=== PATIENT | male | born 1965 | race Caucasian/White ===

== ENCOUNTER 2021-02-22 12:19 | Observation (INO) ==
[~2021-02-22 12:19] MED LIST: Buffered Lidocaine 1% SYRIN 1 ml INTRADERM ONE; Lactated Ringers 1000 ml BAG 1,000 ML IV SCH
[2021-02-22] MEDS ORDERED: Sodium Citrate/Citric Acid LIQ 15 ML UDC PO ONE (13:22)
[2021-02-22] MEDS ORDERED: fentaNYL 100 mcg/2 ml 50 MCG/ML VIAL ONE (13:27)
[2021-02-22] MEDS ORDERED: Propofol 10 MG/ML 20 ML BTL ONE (13:27)
[2021-02-22] MEDS ORDERED: Midazolam 2 mg/2 ml VIAL 1 mg/ml 2 ml VIAL (2 mg) ONE (13:27)
[2021-02-22] MEDS ORDERED: Lidocaine 2% PF 5 ML VIAL ONE (13:27)
[2021-02-22] MEDS ORDERED: Sodium Citrate/Citric Acid LIQ 15 ML UDC ONE (13:31)
[2021-02-22] MEDS ORDERED: ceFAZolin 2 GM PREMIX 2 GM/50 ML BAG ONE (13:40)
[2021-02-22] MEDS ORDERED: diPHENhydraMINE 25 mg TAB PO PRN (15:10)
[2021-02-22] MEDS: NS 0.9% 1000 ml BAG 1,000 ML IV SCH (16:33)
[2021-02-22] MEDS: oxyCODONE/Acetamin 5/325 mg TAB PO PRN ×2 (18:39→22:38)
[2021-02-23] MEDS: NS 0.9% 1000 ml BAG 1,000 ML IV SCH (03:13)
[2021-02-23 06:53] LABS: ABS Eosinophils 0.3 10^3/ul (0-0.6); ABS Lymphocytes 1.7 10^3/ul (1.0-4.8); ABS Monocytes 0.6 10^3/ul (0-0.8); ABS Neutrophils 3.3 10^3/ul (1.5-7.7); Eosinophil % 5.5 %; Hematocrit 43 % (42-52); Hemoglobin 14.8 g/dL (14.0-18.0); Lymphocyte % 28.5 %; Mean Corpuscular HGB Conc 34 g/dL (31-36); Mean Corpuscular Hemoglobin 32 pg (27-31); Mean Corpuscular Volume 92 fL (80-94); Mean Platelet Volume 9.2 fL (7.4-10.4); Platelet Count 247 10^3/uL (150-450); Red Blood Count 4.69 10^6 /uL (4.18-5.48); Red Cell Distribution Width 13 % (10-15)
[2021-02-23 07:10] LABS: Albumin 3.6 g/dL (3.2-5.2); Albumin/Globulin Ratio 1.4 (1-3); BUN/Creatinine Ratio 18.9 (8-20); EGFR African American 132.9 (>60); EGFR Non-African American 109.8 (>60); Globulin 2.5 g/dL (2-4); Magnesium 1.9 mg/dL (1.9-2.7); Total Bilirubin 0.9 mg/dL (0.2-1.0); Total Protein 6.1 g/dL (6.4-8.9)
[2021-02-23 07:54] VITALS: BP 128/72
== END 2021-02-23 12:00 | disposition home or self-care (01) ==
LOC: SSU 12:19 → OR 12:19
PROVIDERS: ADMIT Internal Medicine Hematology & Oncology; ATTEND Internal Medicine Hematology & Oncology
PROC: O.GIPEG (2021-02-22 14:10)